=== PATIENT | male | born 1945 | race Caucasian/White ===

== ENCOUNTER → 2017-11-01 | Outpatient (CLI) | payer MEDICARE, BC ==
[~2017-11-01] MED LIST: ALBU90OI61 INH; AMLO10 PO; ASPI81EC PO; ATEN50 PO; ATOR10; ATOR20; ATOR40TA PO; BENA20; CALCA500CH PO; CITA20 PO; CYAN500 PO; Calcium + Vita1 EACH PO; DIPATR PO; FAMO20 PO; FISH1000; FISH1000 PO; GLUCHON; LISHYD2012 PO; LOVA40 PO; METF500C PO; NEBI5 PO; OMEP20ER PO; PARO30 PO; POTCHL10ER PO; Pravachol40 MG PO; Prilosec20 MG PO; RANI150 PO; VITAMENS; ZESTORETIC 20-1 EACH PO; Zantac150 MG PO; Zofran4 MG PO
== END | disposition home or self-care (01) ==
LOC: LAB 11:40
DX: K25.9 Gastric ulcer, unspecified as acute or chronic, without hemorrhage or perforation (principal)
CPT/HCPCS: 87338